=== PATIENT | male | born 1945 | race Caucasian/White ===

== ENCOUNTER 2020-05-17 07:26 | Day surgery (SDC) | payer SELFPAY, OTHER ==
--- NOTE | 2020-05-17 07:34 | RAD_ITS ---
STUDY: X-RAY - ABDOMEN/PELVIS REASON FOR EXAM: Male, 75 years old. Kidney stone on the left. TECHNIQUE: AP supine and upright views of the abdomen and pelvis. COMPARISON: None. FINDINGS: Normal visualized lung bases. There is an abundance of fecal material throughout the colon. There is no demonstrated free abdominal air. The visualized liver, spleen and kidneys are grossly normal in size and morphology. There is a 7.6 mm stone to the left of the superior endplate of L4 which I suspect is in the left ureter Normal soft tissue structures. There are diffuse degenerative changes of the visualized lumbar spine. RAD/Abdomen Single View IMPRESSION: 7.6 mm left ureteral lithiasis suspected Electronically Signed: Qamar Faith MD at 17:26 EDT , Service support ,
[2020-05-17 07:56] VITALS: BP 157/109; PULSE 94; RESP 16; TEMP 37.7; O2SAT 95; BMI 28.6
[2020-05-17] MEDS: Lactated Ringers 1,000 ML 100 ML IV ×2 (08:08→10:19)
[2020-05-17] MEDS: Cefazolin 2 GM in 0.9% Normal Saline 100 ML IV (08:56)
--- NOTE | 2020-05-17 09:03 | PCM.HP.STD ---
History of Present Illness Date of Admission: 05/17/20 Chief Complaint: Left mid ureteral calculi The patient is a 75 year old male who presented outside emergency room with obstructing stone in the mid left ureter about 6 7 mm in size today very treat the stone with shockwave lithotripsy Past Medical History Allergies No Known Allergies Allergy (Verified 05/17/20 07:54) Home Medications: Ambulatory Orders Medication Instructions Recorded Ketorolac [Toradol] 10 mg PO Q6H PRN 05/16/20 Oxycodone HCl/Acetaminophen 1 ea PO PRN PRN 05/16/20 [Percocet 5-325 mg Tablet] Surgical History: no surgical history Smoking Status: Former smoker Tobacco Use: Non-smoker Review of Systems Constitutional: Denies: Chills, Fever, Weight Change HEENT: Denies: Head Aches, Sinus Congestion, Sinus Drainage Cardiovascular: Denies: Chest Pain, Palpitations Respiratory: Denies: Cough, Shortness of breath at rest, Sputum production Gastrointestinal: Denies: Abdominal Pain, Nausea, Vomiting Genitourinary: Denies: Dysuria Musculoskeletal: Denies: Joint Pain, Joint Tenderness Skin: Denies: Rash, Wounds Neurological: Denies: Numbness, Tingling, Focal weakness Psychiatric: Denies: Anxiety, Depression, Homicidal Ideations, Suicidal Ideations Hematologic/ Lymphatic: Denies: Easy Bruising, Easy Bleeding VTE Information - Inpt Only VTE Present on Admission: No - Physical Exam Vitals/I&O's: Vital Signs Temp Pulse Resp BP Pulse Ox 99.8 F H 94 16 157/109 H 95 05/17/20 07:56 05/17/20 07:56 05/17/20 07:56 05/17/20 07:56 05/17/20 07:56 Oxygen Delivery Method Room Air Weight: 82.9 kg Body Mass Index (BMI) 28.6 General: Alert, Oriented x3, Cooperative HEENT: Atraumatic, PERRLA, EOMI, Normocephalic Neck: Supple, No JVD, Negative Carotid Bruits Lungs: Clear to auscultation, Normal air movement Cardiovascular: Regular rate, No murmurs Abdomen: Bowel Sounds Present, Soft, Non Tender Extremities: No edema, Capillary Refill Less than 3 Seconds Skin: No rashes, No breakdown Musculoskeletal: No Tenderness to Palpation of Joints or Extremities Neurological: Cranial nerves II-XII grossly intact Psych/Mental Status: Normal Affect, Appropriate Current Medications Lactated Ringer's () 1,000 mls @ 100 mls/hr IV .Q10H ETTA Last Admin: 05/17/20 08:08 Dose: 100 mls/hr Documented by: Sodium Chloride () 5 - 15 ml IV UD PRN PRN Reason: SALINE FLUSH Assessment/Plan Plan to proceed with left ESWL.
--- NOTE | 2020-05-17 09:04 | PCM.DC.URO ---
Discharge Diet: No Restrictions Discharge Activity: Return to Normal Activity, May Not Drive - for 2 days. Additional Activity Instructions:: Please be aware that pain medications may cause nausea. You should typically eat light foods as you take your pain medication. Pain medication may cause constipation, if this is a problem for you, please discuss with your doctor. Allergies/Adverse Reactions: Allergies No Known Allergies Allergy (Verified 05/17/20 07:54) Medications to take at Discharge Ketorolac [Toradol] 10 mg PO Q6H PRN 05/16/20 Oxycodone HCl/Acetaminophen [Percocet 5-325 mg Tablet] 1 ea PO PRN PRN 05/16/20 Orders to be completed after discharge: Abdomen Single View [RAD] Time Frame: 05/17/20, Facility: [facility], Location: [facility] Primary Care Physician: Care Physician,No Primary [Primary Care Provider] - Test Results: Test results from this visit will be discussed in further detail at your follow-up appointment, if applicable. Please Follow Up With: Agustín Zarate MD When: in 2 weeks, please call to make an appointment.
--- NOTE | 2020-05-17 09:57 | PCM.OPRPT ---
Report of Operation Date of Procedure: 05/17/20 Pre-Operative Diagnosis: Left ureteral calculi Post-Operative Diagnosis: Same Surgery/Procedure Performed:: Left extracorporeal shockwave lithotripsy Description of Surgical Findings:: 75-year-old male presented the office with an obstructing stone in the mid left ureter about 7 mm in size because of this I recommended we treated with shockwave lithotripsy stone was clearly visible on KUB. Patient was taken back to the operating room after smooth induction of a general anesthetic he was placed in supine position on the lithotripter table then using fluoroscopy we identified the stone in the mid left ureter stone was placed at the F2 focal point of the machine and a total of 4000 shockwaves were delivered to the stone at a rate of 90/min power up to 9 kV. At the end of the treatment cycle definitely the stone broke up in a bunch of little pieces he could still see there were a bunch of 2 and 3 mm fragments. Very likely he will be on to pass these fragments now that it broken up so we decided not to put a stent in patient's anesthetic was reversed and I will see him back in a few weeks in the office with a KUB. He was extubated taken the PACU in good condition. Type of Anesthesia:: General Drains: none - Admit VTE Documentation VTE Present on Admission: No VTE Mechan Device Prophylaxis: SCD's
[2020-05-17 10:06] VITALS: BP 147/102; BP 157/109; PULSE 81; RESP 16; TEMP 36.7; O2SAT 94
[2020-05-17] MEDS: Ketorolac 15 MG/ML Vial IV (10:12)
[2020-05-17 10:14] VITALS: BP 157/109; BP 161/99; PULSE 75; RESP 16; O2SAT 94
[2020-05-17 10:27] VITALS: BP 157/109; BP 165/97; PULSE 72; RESP 16; TEMP 36.3; O2SAT 95
[2020-05-17 11:00] VITALS: BP 157/109
== END 2020-05-17 11:04 | disposition home or self-care (01) ==
LOC: SDC 07:31 → AC 07:32
PROVIDERS: Referring Provider Urology; Visit Provider Urology
PROC: (CPT 50590; principal; 2020-05-17 08:30)
DX: N20.2 Calculus of kidney with calculus of ureter (principal); Z87.891 Personal history of nicotine dependence
CPT/HCPCS: 00873; 50590; 74018; J7120; J2405

== ENCOUNTER → 2020-06-03 13:26 | Outpatient (CLI) | payer SELFPAY, OTHER ==
[2020-05-17 07:56] VITALS: BMI 28.6
--- NOTE | 2020-06-03 13:30 | RAD_ITS ---
STUDY: X-RAY - ABDOMEN/PELVIS REASON FOR EXAM: Male, 75 years old. HX LEFT KIDNEY STONE TECHNIQUE: Single AP view of the abdomen / pelvis. COMPARISON: Comparison is made with prior study dated 05/17/2020. FINDINGS: There is a moderate amount of colonic fecal material. The previously seen calcification in the left side of the abdomen overlying the L4 transverse process is not seen at this time. 2 adjacent small calcifications are seen in the superior aspect of the left hemipelvis measuring 3.5 mm. These were not seen on prior study. This may represent fragments from the previously seen left ureteral calculus. There are calcified phleboliths in the pelvis. There are diffuse degenerative changes of the visualized lumbar spine. RAD/Abdomen Single View IMPRESSION: 2 adjacent 3.5 mm rounded calcifications in the left hemipelvis as described. The dominant calculus in left midabdomen is not seen at this time. Electronically Signed: Moose Sorensen, at 13:36 EDT , Service support ,
== END ==
PROVIDERS: Referring Provider Urology; Visit Provider Urology
DX: N20.1 Calculus of ureter (principal)
CPT/HCPCS: 74018

== ENCOUNTER → 2020-08-28 06:57 | Outpatient (CLI) | payer SELFPAY, OTHER | PROVIDERS: Referring Provider Urology; Visit Provider Urology | DX: Z01.818 Encounter for other preprocedural examination (principal) ==